=== PATIENT | female | born 1995 | race American Indian/Alaskan Native ===

== ENCOUNTER 2018-10-22 04:36 | Inpatient (IN) | payer MEDICAID ==
[2018-10-22] MEDS ORDERED: ZOFRAN IV PRN ×2 (07:30→20:51)
[2018-10-22] MEDS ORDERED: SUBLIMAZE IV PRN (07:30)
[2018-10-22] MEDS ORDERED: NARCAN 0.4 MG/1 ML IV PRN (07:30)
[2018-10-22] MEDS ORDERED: XYLOCAINE 2% INFILTRATI NR (07:30)
[2018-10-22] MEDS ORDERED: BRETHINE SUB-Q PRN (07:30)
[2018-10-22] MEDS ORDERED: STADOL IV PRN (07:30)
[2018-10-22] MEDS ORDERED: BRETHINE IVP PRN (07:30)
[2018-10-22] MEDS ORDERED: PITOCin/NS 30 UNIT/500ML 30 UNITS/500 ML BAG IV SCH (07:30)
[2018-10-22] MEDS ORDERED: PITOCin/NS 20 UNIT/1000ML DRIP 20 UNITS/1,000 ML BAG IV SCH (08:00)
[2018-10-22] MEDS ORDERED: LACTATED RINGERS 1,000 ML IV SCH (08:00)
[2018-10-22] MEDS ORDERED: MINERAL OIL PO PRN (08:00)
--- NOTE | 2018-10-22 09:02 | History and Physical Report ---
History of Present Illness Date of examination: 10/22/18 Date of admission: 10/22/18 05:54 Chief complaint: contractions History of present illness: 23y/o @ 38+1 weeks presents in active labor with advanced cervical dilation. Patient is late presentation to care @ 32 weeks. course complicated by GDMA1 and STD exposure to trichomonas. GBS negative. Past History Past Medical History: no pertinent history Past Surgical History: no surgical history Social history: single - Obstetrical History Expected Date of Delivery: 11/04/18 Actual Gestation: 38 Week(s) 1 Day(s) : 3 Para: 1 Hx # Term Pregnancies: 1 Number of Pregnancies: 0 Spontaneous Abortions: 0 Induced : 1 Number of Living Children: 1 Medications and Allergies Allergies Allergy/AdvReac Type Severity Reaction Status Date / Time No Known Allergies Allergy Verified 10/22/18 05:03 Home Medications Medication Instructions Recorded Confirmed Last Taken Type No Known Home Medications [No 10/22/18 10/22/18 Unknown History Reported Home Medications] Active Meds: Active Medications Butorphanol Tartrate (Stadol) 2 mg IV Q2H PRN PRN Reason: Pain , Severe (7-10) Ephedrine Sulfate (Ephedrine Sulfate) 10 mg IV Q2M PRN PRN Reason: Hypotension Fentanyl (Sublimaze) 100 mcg IV Q2H PRN PRN Reason: Labor Pain Lactated Ringer's (Lactated Ringers) 1,000 mls @ 125 mls/hr IV DIRECT AINSLEY Oxytocin/Sodium Chloride (Pitocin/Ns 20 Unit/1000ml Drip) 20 units in 1,000 mls @ 125 mls/hr IV DIRECT AINSLEY Oxytocin/Sodium Chloride (Pitocin/Ns 30 Unit/500ml) 30 units in 500 mls @ 4 mls/hr IV TITR AINSLEY; Protocol Lidocaine (Xylocaine 2%) 20 ml INFILTRATI ONCE NR Stop: 10/23/18 07:29 Mineral Oil (Mineral Oil) 30 ml PO QHS PRN PRN Reason: Constipation Naloxone HCl (Narcan 0.4 Mg/1 Ml) 0.1 mg IV Q2MIN PRN PRN Reason: Res Rate </= 8 or 02 SAT < 92% Ondansetron HCl (Zofran) 4 mg IV Q8H PRN PRN Reason: Nausea And Vomiting Terbutaline Sulfate (Brethine) 0.25 mg SUB-Q ONCE PRN PRN Reason: Hyperstimulation/Hypertonicity Terbutaline Sulfate (Brethine) 0.25 mg IVP ONCE PRN PRN Reason: Hyperstimulation/Hypertonicity Review of Systems All systems: negative Genitourinary: leakage of fluid, pelvic pain, contractions - Vital Signs Vital signs: Vital Signs Temp Pulse Resp BP 98.7 F 107 H 18 126/65 10/22/18 04:54 10/22/18 04:54 10/22/18 04:54 10/22/18 04:54 Temp Pulse Resp BP Pulse Ox 98.7 F 81 18 116/69 10/22/18 04:54 10/22/18 07:16 10/22/18 04:54 10/22/18 07:16 - Physical Exam Breasts: Positive: deferred Cardiovascular: Regular rate Lungs: Positive: Clear to auscultation - Obstetrical Cervical Dilatation: 6 Results All other labs normal. Assessment and Plan - Patient Problems (1) Active labor at term Current Visit: No Status: Acute Plan to address problem: admit to L&D
[2018-10-22] MEDS ORDERED: NARCAN 2 MG/2 ML IV PRN (13:22)
[2018-10-22] MEDS ORDERED: fentaNYL-BUPIV 2 MCG/ML-0.125% 200 MCG/100 ML BAG EPIDURAL SCH (14:00)
--- NOTE | 2018-10-22 14:40 | Anesthesia Consultation ---
Anesthesia Consult and Med Hx Date of service: 10/22/18 - Airway Anesthetic Teeth Evaluation: Good ROM Head & Neck: Adequate Mental/Hyoid Distance: Adequate Mallampati Class: Class III Intubation Access Assessment: Possibly Difficult - Pulmonary Exam CTA: Yes - Cardiac Exam Cardiac Exam: RRR - Pre-Operative Health Status ASA Pre-Surgery Classification: ASA3 Proposed Anesthetic Plan: Epidural, Spinal - Pulmonary Hx Smoking: No Hx Asthma: No - Cardiovascular System Hx Hypertension: No - Central Nervous System Hx Neuromuscular Disorder: No CVA: No Hx Psychiatric Problems: No - Endocrine Hx Renal Disease: No Hx Liver Disease: No Hx Insulin Dependent Diabetes: Yes Hx Thyroid Disease: No - Hematic Hx Anemia: Yes - Other Systems Hx Obesity: Yes (BMI 40) - Additional Comments Anesthesia Medical History Comments: No prior epidurals.
[2018-10-22 15:22] LABS: Red Blood Count TNR M/mm3 (3.65-5.03)
[2018-10-22 15:23] LABS: Hematocrit TNR % (30.3-42.9); Hemoglobin TNR gm/dl (10.1-14.3); Mean Corpuscular HGB Conc TNR % (30-34); Mean Corpuscular Volume TNR fl (79-97)
[2018-10-22 15:24] LABS: Lymphocytes % (Auto) TNR % (13.4-35.0); Mean Platelet Volume TNR fl (6-12); Monocytes % (Auto) TNR % (0.0-7.3); Platelet Count TNR K/mm3 (140-440); Red Cell Distribution Width TNR % (13.2-15.2)
[2018-10-22 15:25] LABS: Basophils # (Auto) TNR K/mm3 (0.0-0.1); Basophils % (Auto) TNR % (0.0-1.8); Eosinophils # (Auto) TNR K/mm3 (0.0-0.4); Eosinophils % (Auto) TNR % (0.0-4.3); Lymphocytes # (Auto) TNR K/mm3 (1.2-5.4); Monocytes # (Auto) TNR K/mm3 (0.0-0.8)
[2018-10-22] MEDS ORDERED: MARCAINE 0.25% INFILTRATI ONE (18:33)
[2018-10-22] MEDS ORDERED: D5LR 1,000 ML IV ONE (20:23)
[2018-10-22] MEDS ORDERED: MILK OF MAGNESIA PO PRN (20:51)
[2018-10-22] MEDS ORDERED: TUCKS PAD TP PRN (20:51)
[2018-10-22] MEDS ORDERED: DULCOLAX PR PRN (20:51)
[2018-10-22] MEDS ORDERED: LANSINOH TP PRN (20:51)
[2018-10-22] MEDS ORDERED: PHENERGAN PR PRN (20:51)
[2018-10-22] MEDS ORDERED: TYLENOL PO PRN (20:51)
[2018-10-22] MEDS ORDERED: NORCO 5/325 PO PRN (20:51)
[2018-10-22] MEDS ORDERED: BENADRYL PO PRN (20:51)
[2018-10-22] MEDS ORDERED: PHENERGAN PO PRN (20:51)
[2018-10-22 20:57] LABS: Basophils % (Auto) 0.2 % (0.0-1.8); Eosinophils % (Auto) 0.1 % (0.0-4.3); Hematocrit 34.4 % (30.3-42.9); Hemoglobin 11.5 gm/dl (10.1-14.3); Lymphocytes # (Auto) 0.9 K/mm3 (1.2-5.4); Lymphocytes % (Auto) 9.1 % (13.4-35.0); Mean Corpuscular HGB Conc 34 % (30-34); Mean Corpuscular Volume 85 fl (79-97); Monocytes # (Auto) 0.6 K/mm3 (0.0-0.8); Monocytes % (Auto) 6.7 % (0.0-7.3); Platelet Count 249 K/mm3 (140-440); Red Blood Count 4.04 M/mm3 (3.65-5.03); Red Cell Distribution Width 13.8 % (13.2-15.2)
[2018-10-22] MEDS ORDERED: SODIUM CHLORIDE FLUSH SYRINGE 10 ML IV NR (21:00)
[2018-10-22] MEDS ORDERED: D5LR 1,000 ML IV SCH (21:00)
--- NOTE | 2018-10-22 21:05 | Procedure Note ---
OB Delivery Note - Delivery Date of Delivery: 10/22/18 Surgeon: MARIA R YEUNG Estimated blood loss: other (150ml) - Vaginal Delivery presentation: vertex Delivery position: OA Delivery augmentation: pitocin Delivery monitor: external FHT, external uterine, internal FHT Route of delivery: Delivery placenta: spontaneous Delivery cord: 3 umbilical vessels Episiotomy: none Delivery laceration: none Anesthesia: epidural Delivery comments: Patient progressed to C/C/+1 and pushed to deliver a liveborn male infant with apgars of 8/9 and weight of 7lbs 10oz. After delivery of the head, the shoulders delivered without difficulty. The infant was bulb suctioned. The cord clamped and cut and infant passed to peds. The placenta delivered spontaneously intact with a 3VC. No lacerations noted. EBL 150ml. - Infant A at 1 minute: 8 at 5 minutes: 9 Gender: Male (weight 7lbs 10oz)
[2018-10-22] MEDS ORDERED: D5NS 1,000 ML IV SCH (23:00)
[2018-10-23] MEDS: IBUPROFEN PO SCH ×4 (00:27→15:01)
[2018-10-23] MEDS ORDERED: BOOSTRIX IM ONE (06:12)
[2018-10-23 09:51] LABS: Hematocrit 31.8 % (30.3-42.9); Hemoglobin 10.8 gm/dl (10.1-14.3)
--- NOTE | 2018-10-23 11:35 | Progress Note ---
Assessment and Plan A/P PPD# 1 s/p Doing well consider d/c home tomorrow Subjective - Subjective Date of service: 10/23/18 Principal diagnosis: s/p Patient reports: appetite normal, voiding normally, pain well controlled, ambulating normally [place]: doing well Objective - Vital Signs Latest vital signs: Vital Signs Temp Pulse Resp BP BP Pulse Ox 10/23/18 05:56 20 10/23/18 04:45 98.0 F 78 18 109/48 98 10/22/18 23:30 98.7 F 74 18 101/75 10/22/18 22:42 98.9 F 73 20 119/60 99 10/22/18 22:16 70 20 108/54 10/22/18 21:54 68 111/54 10/22/18 21:29 70 108/54 10/22/18 21:14 86 115/57 10/22/18 21:00 80 20 134/61 134/61 10/22/18 20:59 85 91 10/22/18 20:57 80 100 10/22/18 20:52 95 H 99 10/22/18 20:47 90 100 10/22/18 20:45 98.0 F 91 H 20 134/63 134/63 10/22/18 20:42 79 100 10/22/18 20:38 71 92 10/22/18 20:37 67 100 10/22/18 20:33 44 L 146/71 10/22/18 20:17 78 129/67 10/22/18 20:15 80 20 115/57 10/22/18 20:02 74 107/58 10/22/18 19:48 71 123/59 10/22/18 19:33 64 122/56 10/22/18 19:32 70 99 10/22/18 19:31 73 88 10/22/18 19:27 91 H 96 10/22/18 19:26 62 116/62 10/22/18 19:22 64 100 10/22/18 19:17 73 124/62 99 10/22/18 19:12 68 99 10/22/18 19:07 72 99 10/22/18 19:02 81 124/69 99 10/22/18 19:00 97.8 F 16 10/22/18 18:57 71 99 10/22/18 18:52 75 99 10/22/18 18:51 71 122/64 10/22/18 18:47 71 98 10/22/18 18:46 73 123/67 10/22/18 18:42 66 100 10/22/18 18:38 77 124/70 10/22/18 18:37 78 100 10/22/18 18:33 74 110/57 10/22/18 18:32 68 109/55 100 10/22/18 18:27 68 100 10/22/18 18:22 65 100 10/22/18 18:17 76 110/58 100 10/22/18 18:12 71 100 10/22/18 18:07 77 98 10/22/18 18:02 75 102/51 100 10/22/18 17:57 71 99 10/22/18 17:52 83 100 10/22/18 17:48 77 113/55 10/22/18 17:47 77 100 10/22/18 17:42 80 99 10/22/18 17:37 90 100 10/22/18 17:32 78 108/57 100 10/22/18 17:27 81 100 10/22/18 17:22 87 100 10/22/18 17:19 88 125/86 10/22/18 17:17 78 100 10/22/18 17:12 72 100 10/22/18 17:07 61 100 10/22/18 17:02 60 105/55 100 10/22/18 17:00 98.1 F 16 10/22/18 16:57 63 100 10/22/18 16:52 56 L 100 10/22/18 16:47 66 103/51 100 10/22/18 16:42 63 100 10/22/18 16:37 67 100 10/22/18 16:32 55 L 101/54 100 10/22/18 16:27 56 L 100 10/22/18 16:22 83 100 10/22/18 16:17 91 H 100 10/22/18 16:15 58 L 97/52 10/22/18 16:13 67 104/55 10/22/18 16:12 63 112/54 100 10/22/18 16:07 61 104/53 100 10/22/18 16:05 54 L 105/53 10/22/18 16:03 78 103/55 10/22/18 16:02 58 L 100 10/22/18 16:01 55 L 105/57 10/22/18 15:59 56 L 108/61 10/22/18 15:57 59 L 102/54 100 10/22/18 15:55 53 L 102/57 10/22/18 15:53 68 101/55 10/22/18 15:52 53 L 100 10/22/18 15:51 77 97/53 10/22/18 15:49 55 L 100/54 10/22/18 15:47 54 L 100/55 100 10/22/18 15:45 60 97/55 10/22/18 15:43 54 L 100/53 10/22/18 15:42 59 L 100 10/22/18 15:41 54 L 101/51 10/22/18 15:40 75 115/64 10/22/18 15:37 75 100 10/22/18 15:32 58 L 100 10/22/18 15:27 62 100 10/22/18 15:22 67 100 10/22/18 15:21 53 L 108/61 10/22/18 15:19 55 L 107/61 10/22/18 15:18 69 129/81 10/22/18 15:17 55 L 100 10/22/18 15:15 57 L 115/64 10/22/18 15:13 67 127/74 10/22/18 15:12 67 99 10/22/18 15:11 63 121/78 10/22/18 15:10 97.8 F 59 L 18 10/22/18 15:09 59 L 117/70 10/22/18 15:07 57 L 115/66 100 10/22/18 15:05 68 118/67 10/22/18 15:03 54 L 119/64 10/22/18 15:02 60 100 10/22/18 15:01 61 115/62 10/22/18 14:59 53 L 116/65 10/22/18 14:57 56 L 115/63 100 10/22/18 14:55 56 L 115/61 10/22/18 14:53 67 116/65 10/22/18 14:52 60 100 10/22/18 14:51 53 L 114/60 10/22/18 14:49 53 L 119/65 10/22/18 14:47 58 L 117/64 100 10/22/18 14:45 59 L 116/60 10/22/18 14:43 53 L 116/59 10/22/18 14:42 58 L 100 10/22/18 14:41 56 L 120/62 10/22/18 14:39 55 L 117/60 10/22/18 14:37 59 L 117/60 100 10/22/18 14:35 57 L 115/60 10/22/18 14:33 56 L 120/61 10/22/18 14:32 57 L 100 10/22/18 14:31 62 115/66 10/22/18 14:29 75 108/64 10/22/18 14:27 58 L 117/59 100 10/22/18 14:25 57 L 117/58 10/22/18 14:23 70 115/55 10/22/18 14:22 72 99 10/22/18 14:21 60 110/55 10/22/18 14:19 57 L 115/57 10/22/18 14:17 56 L 113/55 100 10/22/18 14:15 70 114/55 10/22/18 14:13 97 H 117/61 10/22/18 14:12 62 100 10/22/18 14:11 69 111/57 10/22/18 14:09 74 105/56 10/22/18 14:07 64 104/56 100 10/22/18 14:05 65 112/58 10/22/18 14:03 80 110/55 10/22/18 14:02 78 100 10/22/18 14:01 73 112/58 10/22/18 13:59 77 117/62 10/22/18 13:57 74 98 10/22/18 13:56 85 125/67 10/22/18 13:52 62 99 10/22/18 13:47 59 L 98 10/22/18 13:42 61 97 10/22/18 13:41 55 L 119/57 10/22/18 13:37 55 L 99 10/22/18 13:35 67 118/74 10/22/18 13:33 59 L 94 10/22/18 13:31 55 L 98 10/22/18 13:30 63 116/64 10/22/18 13:26 77 98 10/22/18 13:25 60 114/63 10/22/18 13:24 59 L 93 10/22/18 13:21 72 98 10/22/18 13:16 93 H 97 10/22/18 12:00 97.9 F Intake and Output 10/22/18 10/23/18 10/23/18 23:59 07:59 15:59 Intake Total 379 300 Output Total 1200 600 Balance -821 -300 Intake: IV 19 PITOCin/NS 30 UNIT/500ML 19 30 units In 500 ml @ 4 mls/hr IV TITR AINSLEY Rx#: [id number] Oral 60 Intake, Free Water 300 300 Output: Urine 1200 600 Condom Catheter 400 Void 800 600 Other: Total, Intake Amount 60 Total, Output Amount 800 600 # Voids Void 1 1 Estimated Blood Loss 150 - Exam Breasts: Present: normal Cardiovascular: Present: Regular rate, Normal S1 Lungs: Present: Clear to auscultation, Normal air movement Abdomen: Present: normal appearance, soft, normal bowel sounds. Absent: distention, tenderness, guarding Uterus: Present: normal, firm, fundal height below umbilicus. Absent: bogginess, tenderness Extremities: Present: normal Deep Tendon Reflex Grade: Normal +2 Incision: Present: normal - Labs Labs: Abnormal lab results 10/22/18 10/22/18 10/22/18 Range/Units 12:10 18:53 20:06 Lymph % (Auto) 9.1 L (13.4-35.0) % Lymph # 0.9 L (1.2-5.4) K/mm3 Seg Neutrophils % 83.9 H (40.0-70.0) % Seg Neutrophils # 7.9 H (1.8-7.7) K/mm3 POC Glucose 62 L 55 L (70-105) 10/22/18 Range/Units 21:59 Lymph % (Auto) (13.4-35.0) % Lymph # (1.2-5.4) K/mm3 Seg Neutrophils % (40.0-70.0) % Seg Neutrophils # (1.8-7.7) K/mm3 POC Glucose 136 H (70-105)
--- NOTE | 2018-10-23 11:38 | Discharge Summary ---
Providers - Providers Date of Admission: 10/22/18 05:54 Date of discharge: 10/24/18 Attending physician: BRENDEN WONG Primary care physician: BRENDEN WONG Hospitalization Reason for admission: active labor Delivery: Episiotomy: none Laceration: none Incision: normal Other procedures: none complications: none Discharge diagnosis: IUP at term delivered [place] baby: male Pertinent studies: unremarkable hospital course Condition at discharge: Good Disposition: DC-01 TO HOME OR SELFCARE Plan - Discharge Medications Prescriptions: Ferrous Sulfate [Feosol 325 MG tab] 325 mg PO QDAY #60 tablet Ibuprofen [Motrin] 600 mg PO Q8H PRN #30 tablet PRN Reason: Pain oxyCODONE /ACETAMINOPHEN [Percocet 5/325] 1 tab PO Q6HR PRN #30 tablet PRN Reason: Pain - Provider Discharge Summary Activity: routine, no sex for 6 weeks, no strenuous exercise Diet: routine Instructions: routine Additional instructions: [] Smoking cessation referral if applicable(refer to patient education folder for contact #) [] Refer to [facility]'s [facility] Booklet Call your doctor immediately for: * Fever > 100.5 * Heavy vaginal bleeding ( >1 pad per hour) * Severe persistent headache * Shortness of breath * Reddened, hot, painful area to leg or breast * Drainage or odor from incision. * Keep incision clean and dry at all times and follow doctor's instructions regarding bathing/showering - Follow up plan Follow up: BRENDEN WONG MD [Primary Care Provider] - 11/20/18
[2018-10-24] MEDS: IBUPROFEN PO SCH ×3 (00:21→13:16)
[2018-10-24 14:11] VITALS: BP 108/49
== END 2018-10-24 14:11 | disposition home or self-care (01) | DRG 775 ==
LOC: TRG 04:36 → LD 05:54 → TRG 05:54 → OB 22:24
PROVIDERS: ADMIT Obstetrics & Gynecology; ATTEND Obstetrics & Gynecology
PROC: 10E0XZZ Delivery of Products of Conception, External Approach (ICD-10-PCS; principal; 2018-10-22)
PROC: 3E0R3BZ Introduction of Anesthetic Agent into Spinal Canal, Percutaneous Approach (ICD-10-PCS; 2018-10-22)
PROC: 00HU33Z Insertion of Infusion Device into Spinal Canal, Percutaneous Approach (ICD-10-PCS; 2018-10-22)
PROC: 3E0234Z Introduction of Serum, Toxoid and Vaccine into Muscle, Percutaneous Approach (ICD-10-PCS; 2018-10-23)
DX: O99.214 Obesity complicating childbirth (principal); Z3A.38 38 weeks gestation of pregnancy; Z37.0 Single live birth; Z23 Encounter for immunization; E66.9 Obesity, unspecified; O99.02 Anemia complicating childbirth; D64.9 Anemia, unspecified
CPT/HCPCS: 36415; 82962; 85014; 85018; 85025; 86850; 86900; 86901; 90471; 90715; G0378; A6250; J0595; J2590; J3010; J7120; J7121